=== PATIENT | male | born 1980 | race Caucasian/White ===

== ENCOUNTER 2024-06-02 06:13 | Day surgery (SDC) | payer OTHER ==
[2024-05-26 11:51] VITALS: BMI 29.9
[2024-06-02] MEDS ORDERED: VANCOMYCIN 1,000 MG VIAL (RESTRICTED TO ID ONLY) ONE (07:46)
[2024-06-02] MEDS ORDERED: MIDAZOLAM HCL 2 MG/2 ML SINGLE DOSE VIAL ONE (07:50)
[2024-06-02] MEDS ORDERED: ACETAMINOPHEN INJECTION 100 ML ONE ×2 (07:50→15:34)
[2024-06-02] MEDS ORDERED: ROPIVACAINE HCL/PF 100 MG/20 ML VIAL ONE (07:50)
[2024-06-02] MEDS ORDERED: PROPOFOL 80 ML ONE (08:16)
[2024-06-02] MEDS ORDERED: PROPOFOL 40 ML ONE (08:57)
[2024-06-02] MEDS ORDERED: BUPIVICAINE 0.25%/MORPH PF/KETOROLAC - 51ML DISP.SYRINGE IA ONE (09:41)
[2024-06-02] MEDS: VANCOMYCIN 1,000 MG VIAL (RESTRICTED TO ID ONLY) IVPB ONE ×2 (10:03)
[2024-06-02] MEDS: BUPIVICAINE 0.25%/MORPH PF/KETOROLAC - 51ML DISP.SYRINGE IA ONE ×3 (10:23)
[2024-06-02] MEDS ORDERED: PROPOFOL 20 ML ONE (10:45)
[2024-06-02] MEDS ORDERED: MAG HYDROX/AL HYDROX/SIMETH 30 ML UNIT-DOSE CUP PO PRN (11:28)
[2024-06-02] MEDS ORDERED: ONDANSETRON 4 MG/2 ML VIAL IVPUSH PRN ×2 (11:28→11:39)
[2024-06-02] MEDS ORDERED: LACTATED RINGERS SOLUTION 1,000 ML IV SCH ×2 (11:30→11:45)
[2024-06-02] MEDS ORDERED: oxyCODONE HCL 5 MG TABLET ONE (12:17)
[2024-06-02] MEDS ORDERED: FENTANYL CITRATE/PF 50 MCG/ML VIAL ONE (12:20)
[2024-06-02] MEDS: oxyCODONE HCL 5 MG TABLET PO PRN (12:30)
[2024-06-02] MEDS: CEFAZOLIN 2 GM/D5W 2 GRAM/50 ML ML IVPB SCH (16:56)
[2024-06-02] MEDS: ACETAMINOPHEN 1000 MG/100 ML BAG IVPB ONE (17:01)
[2024-06-02 18:20] VITALS: BP 107/68; PULSE 67; RESP 16; TEMP 97.8
[2024-06-02] MEDS ORDERED: ACETAMINOPHEN 1000 MG/100 ML BAG IVPB ONE (18:45)
[2024-06-02] MEDS ORDERED: GABAPENTIN 300 MG CAPSULE PO SCH (22:00)
[2024-06-02] MEDS ORDERED: SENNOSIDES/DOCUSATE COMBO (SENNA PLUS) TABLET (UD) PO SCH (22:00)
[2024-06-03] MEDS ORDERED: ASPIRIN COATED 81 MG TABLET.EC PO SCH (10:00)
[2024-06-03] MEDS ORDERED: MULTIVITAMINS (DAILY MVI) TABLET (FP) PO SCH (10:00)
[2024-06-03] MEDS ORDERED: PANTOPRAZOLE 40 MG TABLET PO SCH (10:00)
== END 2024-06-02 19:23 | disposition home or self-care (01) ==
LOC: FASUSAT 06:13 → FM/S 12:55 → FASUSAT 19:23
PROVIDERS: ATTEND Orthopaedic Surgery Sports Medicine
PROC: 8E0Y0CZ Robotic Assisted Procedure of Lower Extremity, Open Approach (ICD-10-PCS; 2024-06-02)
PROC: 0SRD0J9 Replacement of Left Knee Joint with Synthetic Substitute, Cemented, Open Approach (ICD-10-PCS; principal; 2024-06-02 08:45)
DX: M17.12 Unilateral primary osteoarthritis, left knee (principal)
CPT/HCPCS: 20985; 27447; C1776; S2900; 73560-TC-LT-FY; 88305-TC; 88311-TC; 94760; 97116-GP; 97162-GP; C1889; J0131

== ENCOUNTER 2025-01-26 06:26 | Day surgery (SDC) | payer OTHER ==
[2025-01-21 13:42] VITALS: BMI 29.9
[2025-01-26] MEDS ORDERED: EPINEPHrine 1:1,000 1,000 MCG/ML ML ONE (07:14)
[2025-01-26] MEDS ORDERED: MIDAZOLAM HCL 2 MG/2 ML SINGLE DOSE VIAL ONE ×3 (07:54→09:58)
[2025-01-26] MEDS ORDERED: BUPIVACAINE LIPOSOME/PF (EXPAREL) 266 MG/20 ML VIAL ONE (07:54)
[2025-01-26] MEDS ORDERED: DEXMEDETOMIDINE HCL 200 MCG/2 ML IVPB ONE ×2 (07:55→10:45)
[2025-01-26] MEDS ORDERED: KETAMINE HCL 100 MG/ML - 5ML VIAL ONE (07:56)
[2025-01-26] MEDS ORDERED: BUPIVACAINE HCL/PF 0.5% (5MG/ML) 10 ML VIAL ONE (08:26)
[2025-01-26] MEDS ORDERED: FENTANYL CITRATE/PF 50 MCG/ML VIAL ONE ×4 (08:26→13:02)
[2025-01-26] MEDS ORDERED: SUCCINYLCHOLINE CHLORIDE 200 MG/10 ML SYRINGE ONE (08:31)
[2025-01-26] MEDS ORDERED: PROPOFOL 20 ML ONE (08:31)
[2025-01-26] MEDS ORDERED: VANCOMYCIN 1,000 MG VIAL (RESTRICTED TO ID ONLY) ONE (10:46)
[2025-01-26] MEDS: MIDAZOLAM HCL 2 MG/2 ML SINGLE DOSE VIAL ONE (12:09)
[2025-01-26] MEDS ORDERED: ePHEDrine SULFATE 50 MG/1 ML AMPULE ONE (12:23)
[2025-01-26] MEDS: ePHEDrine SULFATE 50 MG/1 ML AMPULE IVPUSH ONE (12:33)
[2025-01-26] MEDS ORDERED: ONDANSETRON 4 MG/2 ML VIAL ONE (13:19)
[2025-01-26] MEDS: ONDANSETRON 4 MG/2 ML VIAL IVPUSH PRN (13:25)
[2025-01-26] MEDS ORDERED: KETOROLAC TROMETHAMINE 30 MG/1 ML VIAL ONE (13:41)
[2025-01-26] MEDS: KETOROLAC TROMETHAMINE 30 MG/1 ML VIAL IVPUSH ONE (13:48)
[2025-01-26] MEDS ORDERED: LACTATED RINGERS SOLUTION 1,000 ML IV SCH (14:15)
[2025-01-26 14:24] VITALS: RESP 18; TEMP 97.4
[2025-01-26 17:13] VITALS: BP 103/66; PULSE 98
== END 2025-01-26 16:00 | disposition home or self-care (01) ==
LOC: FASU 06:26
PROVIDERS: ATTEND Orthopaedic Surgery Sports Medicine
PROC: 0SND4ZZ Release Left Knee Joint, Percutaneous Endoscopic Approach (ICD-10-PCS; principal; 2025-01-26 09:18)
PROC: 0SPD0NZ Removal of Patellofemoral Synthetic Substitute from Left Knee Joint, Open Approach (ICD-10-PCS; 2025-01-26 09:18)
PROC: 0SRD0NZ Replacement of Left Knee Joint with Patellofemoral Synthetic Substitute, Open Approach (ICD-10-PCS; 2025-01-26 09:18)
DX: M24.662 Ankylosis, left knee (principal); M17.12 Unilateral primary osteoarthritis, left knee; Z96.652 Presence of left artificial knee joint
CPT/HCPCS: 27438; C1776; 73560-TC-RT-FY; 94760; 97116-GP; J0666